=== PATIENT | male | born 2000 | race Caucasian/White ===

== ENCOUNTER 2023-08-09 09:38 | Emergency (ER) | payer SELFPAY ==
[2023-08-09 09:55] VITALS: BP 149/87; PULSE 74; RESP 20; TEMP 36.7; O2SAT 98; BMI 32.7
[2023-08-09 10:08] LABS: UTC Strep Screen (Rapid) Negative (Negative)
--- NOTE | 2023-08-09 10:12 | EXP.UTC ---
Discharge Plan Disposition Patient Disposition: Home, Self-Care Condition: Good Prescriptions Prescriptions: New amoxicillin 875 mg tablet 875 mg PO Q12H Qty: 20 0RF fluticasone propionate [Flonase Allergy Relief] 50 mcg/actuation spray,suspension 1 - 2 spray intranasal DAILY Qty: 16 0RF Rx Instructions: administer into each nostril daily Referrals Follow up/Referrals: Provider,Referral, MD [Primary Care Provider] - See instructions Activity Restrictions/Add. Instructions Additional Instructions/Restrictions: *Monitor Temp, Over the counter Motrin or Tylenol as directed/as needed Tylenol every 4 hours and Motrin every 6 hours (as long as your family doctor has told you that you can take it) for fever or pain. and straight to ER if unable to lower temp less than 101.0 after medication given *Warm salt water gargles may help to soothe the throat *Throat Lozenges? *Warm fluids like tea with honey may help to soothe the throat? *Sleep elevated *Humidifier/Vaporizer *Flonase 2 sprays in each nostril daily but be aware that it may take 2-3 days before you notice improvement Your throat swab was sent for culture. Those results are typically sent to your primary care. Be sure to follow up in 2-3 days with your family doctor/primary care physician if no improvement so they can review those result and treat if necessary. If you don?t have a primary care doctor, I recommend you get one but in the mean time, you will have to return to a walk in clinic Follow up IMMEDIATELY for new or worsening symptoms or no Noticeable improvement over the next 48-72 hours. 911 for difficulty breathing or swallowing Clinical Impressions Clinical Impression: Otitis media Qualifiers: Otitis media type: unspecified Laterality: left Qualified Code(s): H66.92 - Otitis media, unspecified, left ear Instructions Patient Instructions: Middle Ear Infection, Amoxicillin Discharge ED Provider: Pearl Holt [facility] General Stated complaint: SORE THROAT, BOTH EARS HURT Mode of Arrival: Ambulatory Source of Information: Patient Limitations: No Limitations Time Seen by Provider: 08/09/23 10:13 Description of Symptoms (Recalled from Triage Doc. by RN): PATIENT C/O SORE THROAT AND BIALTERAL EAR PAIN X 2-3 DAYS HEENT Symptoms (Recalled from RN notes): Yes Resp Symptoms (Recalled from RN notes): No Skin Symptoms (Recalled from RN notes): No MS Symptoms (Recalled from RN notes): No Functional Status (Recalled from RN notes): WNL History of Present Illness Provider Complaint: Patient states that he has been having bilateral ear pain and sore throat and burning like sensation in his throat with swallowing States that today he was feeling worse so he came in to get checked Related Data Previous Rx's Medication Instructions Recorded amoxicillin 875 mg tablet 875 mg PO Q12H #20 tabs 08/09/23 fluticasone propionate 50 1 - 2 spray intranasal DAILY #16 08/09/23 mcg/actuation nasal grams spray,suspension (Flonase Allergy Relief) Allergies Allergy/AdvReac Type Severity Reaction Status Date / Time No Known Allergies Allergy Verified 08/09/23 10:07 Worker's Comp Is this a Worker's Comp case?: No PFS PFS Disclaimer: The information contained in this section may have been updated after the patient was seen, as this information can be updated by other users. Surgical History (Updated 08/09/23 @ 10:08 by Claudia Pryor RN) History of tympanostomy tube placement Social History Smoking Status: Unknown if ever smoked alcohol intake: never current occupational status: employed Travel in the last 8 weeks: None ROS Obtained: Yes All systems reviewed & no additional complaints except as documented Constitutional Constitutional: Reports system reviewed and no additional complaints, except as documented, Reports as per HPI and Reports headache(s) ENT Ears, Nose, Mouth, and
[2023-08-09 10:28] VITALS: BP 149/87; PULSE 74; RESP 20; TEMP 36.7; O2SAT 98
== END 2023-08-09 10:33 | disposition home or self-care (01) ==
PROVIDERS: Emergency Provider Nurse Practitioner
DX: H66.92 Otitis media, unspecified, left ear (principal); R07.0 Pain in throat; H92.03 Otalgia, bilateral
CPT/HCPCS: 87880; 99204; 99212; G0463

== ENCOUNTER 2023-08-27 16:54 | Emergency (ER) | payer SELFPAY ==
--- NOTE | 2023-08-27 16:52 | ECG_ITS ---
APPROVED REPORT Exam: Resting ECG HR:131 bpm ECG Measurements Heart Rate 131 AXES VA 172 P 73 QRSd 96 QRS 85 QT 382 T 53 QTc 459 Conclusion SINUS TACHYCARDIA INCOMPLETE RIGHT BUNDLE BRANCH BLOCK [90+ ms QRS DURATION, TERMINAL R IN V1/V2, 40+ ms S IN I/aVL/V4/V5/V6] NONSPECIFIC T-WAVE ABNORMALITY ABNORMAL RHYTHM ECG UNCONFIRMED REPORT Electronically signed by : Gilmar Perry MD 08/28/2023 10:18:22
[2023-08-27 16:55] VITALS: BMI 22.9
[2023-08-27 17:00] VITALS: BP 146/91; BP 155/88; PULSE 76; PULSE 93; RESP 19; RESP 23; TEMP 36.7; O2SAT 96; O2SAT 99; BMI 22.9
--- NOTE | 2023-08-27 17:13 | XR_ITS ---
PROCEDURE INFORMATION: Exam: XR Chest Exam date and time: 08/27/2023 5:29 PM Age: 23 years old Clinical indication: Pain; Chest pressure; Patient HX: PT vapes; Additional info: Chest pain TECHNIQUE: Imaging protocol: Radiologic exam of the chest. Views: 1 view. COMPARISON: No relevant prior studies available. FINDINGS: Lungs: Unremarkable. No consolidation. Pleural spaces: Unremarkable. No pleural effusion. No pneumothorax. Heart/Mediastinum: Unremarkable. No cardiomegaly. Bones/joints: Unremarkable. IMPRESSION: No acute findings.
[2023-08-27 17:30] VITALS: BP 127/74; PULSE 75; RESP 19; O2SAT 97
[2023-08-27 17:31] LABS: Basophils # 0.1 K/mm3 (0-0.2); Basophils % 0.5 % (0.1-2.0); Chloride 103 mmol/L (98-107); Eosinophils # 0.3 K/mm3 (0.0-0.4); Eosinophils % 2.7 % (0.1-12.0); Hematocrit 44.6 % (42.0-52.0); Hemoglobin 15.6 g/dL (14.1-18.0); Lymphocytes # 3.8 K/mm3 (0.7-4.5); Lymphocytes % 38.6 % (10-50); Mean Corpuscular Hemoglobin 30.2 pg (27.0-31.2); Mean Corpuscular Volume 86.4 fl (80-94); Mean Platelet Volume 7.3 fl (7.4-10.4); Monocytes # 0.6 K/mm3 (0.1-1.0); Monocytes % 6.3 % (1.7-9.3); Neutrophils # 5.1 K/mm3 (1.8-7.8); Platelet Count 332 K/mm3 (142-424); Red Blood Count 5.16 M/mm3 (4.60-6.20); Red Cell Distribution Width 12.9 % (11.5-17.5); White Blood Count 9.9 K/mm3 (4.8-10.8)
[2023-08-27 17:32] LABS: Potassium 3.4 mmoL/L (3.5-5.1); Sodium 142 mmol/L (136-145)
[2023-08-27 17:34] LABS: Alanine Aminotransferase 40 U/L (12-78); Aspartate Amino Transferase 42 U/L (17-59); Blood Urea Nitrogen 12 mg/dl (9-20); Creatinine Clearance Estimated 150 mL/min (50-200); Estimated Glomerular Filt Rate 122 ml/min (>60); GFR (African American) 148 ML/MIN (>60)
[2023-08-27 17:35] LABS: Albumin Level 5.2 g/dl (3.5-5.0); Albumin/Globulin Ratio 1.6 (1.1-1.8); Alkaline Phosphatase 89 U/L (38-126); Anion Gap 13.4 mEq/L (5-15); Bilirubin,Total 0.5 mg/dl (0.2-1.3); Calcium 9.6 mg/dl (8.4-10.2); Carbon Dioxide 29 mmol/L (22.0-30.0); Globulin 3.3 g/dL (1.3-3.2); Glucose 100 mg/dl (74-100); Total Protein,Serum 8.5 g/dl (6.3-8.2)
--- NOTE | 2023-08-27 17:44 | PC.NURSE ---
Dr. Stahl at [facility] for pt eval
--- NOTE | 2023-08-27 17:48 | HMH.EDCP ---
Discharge Plan Disposition Patient Disposition: Home, Self-Care Prescriptions Prescriptions: No Action amoxicillin 875 mg tablet 875 mg PO Q12H Qty: 20 0RF fluticasone propionate [Flonase Allergy Relief] 50 mcg/actuation spray,suspension 1 - 2 spray intranasal DAILY Qty: 16 0RF Rx Instructions: administer into each nostril daily Referrals Follow up/Referrals: Provider,Referral, MD [Primary Care Provider] - See instructions Activity Restrictions/Add. Instructions Additional Instructions/Restrictions: No evidence of myocarditis or any other acute cardiopulmonary emergency. Your symptoms are most likely secondary to gastroesophageal reflux disease given the significant improvement with a GI cocktail. You may take Maalox or Pepcid [id number] please follow-up primary care doctor as needed. Clinical Impressions Clinical Impression: Chest pain, GERD (gastroesophageal reflux disease) Discharge ED Provider: Matt Stahl [facility] General Chief Complaint: Chest Pain Stated Complaint: Chest Pain Time Seen by Provider: 08/27/23 17:44 Mode of Arrival: Ambulatory Source of Information: Patient Limitations: No Limitations Description of Symptoms (Recalled from ER Triage Doc. by RN): pt to ed c/o left sided chest pain that started x2 days ago. pt states he has a hx of endocarditis. pt reports intermittent pain. pt denies any radiation. 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 Has not had any viral illness recently but states he started having some chest discomfort on Sunday. Thought that it was reflux took Tums and felt significantly improved however pain returned today at noon and did not get better with Tums therefore came to the emergency department make sure he did not have myocarditis. Denies any exertional symptoms no fevers or chills or cough etc. Related Data Previous Rx's Medication Instructions Recorded amoxicillin 875 mg tablet 875 mg PO Q12H #20 tabs 08/09/23 fluticasone propionate 50 1 - 2 spray intranasal DAILY #16 08/09/23 mcg/actuation nasal grams spray,suspension (Flonase Allergy Relief) Allergies Allergy/AdvReac Type Severity Reaction Status Date / Time No Known Allergies Allergy Verified 08/09/23 10:07 [facility] Disclaimer: The information contained in this section may have been updated after the patient was seen, as this information can be updated by other users. Surgical History (Updated 08/09/23 @ 10:08 by Claudia Pryor RN) History of tympanostomy tube placement Social History (Updated 08/09/23 @ 10:20 by Pearl Holt APRN) Smoking Status: Never smoker alcohol intake: never current occupational status: employed Travel in the last 8 weeks: None ROS Obtained: Yes All systems reviewed & no additional complaints except as documented Physical Exam General General appearance: alert and in no apparent distress Respiratory Respiratory exam: Present normal lung sounds bilaterally; Absent respiratory distress, wheezes, stridor or accessory muscle use Cardiovascular Cardiovascular exam: Present regular rate; Absent tachycardia Neurological Exam Neurological exam: Present alert HEART Score HEART Score HEART Score assessment performed?: Yes History (anamnesis): Slightly suspicious ECG: Non-specific disturbance Age: <45 years Risk factors: No known risk factors Troponin: </= normal limit HEART Score: 1 Critical Care Critical Care Time Critical Care Time: No Medical Decision Making [place] Inquiry Pt receiving controlled substance: No Vital Signs Vital Signs: 08/27/23 17:00 08/27/23 17:00 08/27/23 17:30 Temperature 98.1 F Temperature Source Oral Pulse Rate 76 75 Pulse Rate [Left Radial] 93 H Respiratory Rate 19 23 19 Blood Pressure 146/9
[2023-08-27 17:58] LABS: Troponin I < 0.01 ng/ml (0.00-0.034)
[2023-08-27 18:01] VITALS: BP 121/76; PULSE 80; RESP 22; O2SAT 99
--- NOTE | 2023-08-27 18:11 | PC.NURSE ---
rounded on pt gave him a glass of water call light at [facility]
[2023-08-27 18:30] VITALS: BP 120/63; PULSE 81; RESP 15; O2SAT 95
--- NOTE | 2023-08-27 18:41 | PC.NURSE ---
Rounded on pt. No needs voiced. Call light remains within reach.
[2023-08-27 19:00] VITALS: BP 115/70; PULSE 59; RESP 20; O2SAT 96
[2023-08-27 19:54] VITALS: BP 115/64; PULSE 60; RESP 18; TEMP 36.7; O2SAT 97
== END 2023-08-27 19:56 | disposition home or self-care (01) ==
PROVIDERS: Emergency Provider Student in an Organized Health Care Education/Training Program
DX: R07.9 Chest pain, unspecified (principal); K21.9 Gastro-esophageal reflux disease without esophagitis
CPT/HCPCS: 71045; 80053; 84484; 85025; 93005; 99285

== ENCOUNTER 2024-02-03 22:45 | Emergency (ER) | payer BC, SELFPAY ==
--- NOTE | 2024-02-03 | ECG_ITS ---
APPROVED REPORT Exam: Resting ECG HR:112 bpm ECG Measurements Heart Rate 112 AXES MS 172 P 56 QRSd 101 QRS 81 QT 312 T -17 QTc 378 Conclusion SINUS TACHYCARDIA INCOMPLETE RIGHT BUNDLE BRANCH BLOCK [90+ ms QRS DURATION, TERMINAL R IN V1/V2, 40+ ms S IN I/aVL/V4/V5/V6] ST DEVIATION AND MODERATE T-WAVE ABNORMALITY, CONSIDER LATERAL ISCHEMIA [-0.1+ mV T-WAVE IN I/aVL/V5/V6] ST DEVIATION AND MODERATE T-WAVE ABNORMALITY, CONSIDER INFERIOR ISCHEMIA [-0.1+ mV T-WAVE IN II/aVF] ABNORMAL ECG Abnormalities in T wave and ST segments in the inferior leads as well as lateral leads, does not meet criteria for STEMI Electronically signed by : KARLA ASIF, 02/04/2024 07:12:42
[2024-02-03 22:46] VITALS: BP 162/99; PULSE 92; RESP 18; TEMP 36.8; O2SAT 98; BMI 31.9
[2024-02-03 22:51] VITALS: BMI 31.9
--- NOTE | 2024-02-03 22:52 | XR_ITS ---
PROCEDURE INFORMATION: Exam: XR Chest Exam date and time: 02/03/2024 10:55 PM Age: 24 years old Clinical indication: Pain; Chest pressure; Additional info: Cp TECHNIQUE: Imaging protocol: Radiologic exam of the chest. Views: 1 view. COMPARISON: CR XR CHEST PORTABLE 08/27/2023 5:29 PM FINDINGS: Lungs: Unremarkable. No consolidation. Pleural spaces: Unremarkable. No pleural effusion. No pneumothorax. Heart/Mediastinum: Unremarkable. No cardiomegaly. Bones/joints: Unremarkable. IMPRESSION: No acute findings.
[2024-02-03 23:00] VITALS: BP 176/100; PULSE 98; RESP 21; O2SAT 98
[2024-02-03 23:01] LABS: Basophils # 0.2 K/mm3 (0-0.2); Basophils % 1.3 % (0.1-2.0); Eosinophils # 0.6 K/mm3 (0.0-0.4); Eosinophils % 4.3 % (0.1-12.0); Hematocrit 47.4 % (42.0-52.0); Hemoglobin 15.8 g/dL (14.1-18.0); Lymphocytes # 5.6 K/mm3 (0.7-4.5); Lymphocytes % 40.8 % (10-50); Mean Corpuscular HGB Conc 33.5 g/dL (31.8-35.4); Mean Corpuscular Hemoglobin 30.1 pg (27.0-31.2); Mean Platelet Volume 7.1 fl (7.4-10.4); Monocytes % 7.4 % (1.7-9.3); Neutrophils # 6.3 K/mm3 (1.8-7.8); Neutrophils % 46.3 % (37.0-80.0); Platelet Count 328 K/mm3 (142-424); Red Blood Count 5.26 M/mm3 (4.60-6.20); Red Cell Distribution Width 13.5 % (11.5-17.5); White Blood Count 13.7 K/mm3 (4.8-10.8)
[2024-02-03 23:05] LABS: Chloride 100 mmol/L (98-107); Potassium 3.1 mmoL/L (3.5-5.1); Sodium 141 mmol/L (136-145)
[2024-02-03 23:07] LABS: Alanine Aminotransferase 45 U/L (12-78); Alkaline Phosphatase 91 U/L (38-126); Aspartate Amino Transferase 44 U/L (17-59); Bilirubin,Total 0.7 mg/dl (0.2-1.3); Blood Urea Nitrogen 17 mg/dl (9-20); Creatinine Clearance Estimated 156 mL/min (50-200); Estimated Glomerular Filt Rate 93 ml/min (>60); GFR (African American) 113 ML/MIN (>60)
[2024-02-03 23:08] LABS: Albumin Level 5.1 g/dl (3.5-5.0); Albumin/Globulin Ratio 1.5 (1.1-1.8); Anion Gap 14.1 mEq/L (5-15); Calcium 10.4 mg/dl (8.4-10.2); Carbon Dioxide 30 mmol/L (22.0-30.0); Globulin 3.4 g/dL (1.3-3.2); Glucose 105 mg/dl (74-100); Total Protein,Serum 8.5 g/dl (6.3-8.2)
[2024-02-03 23:21] LABS: Troponin I < 0.01 ng/ml (0.00-0.034)
[2024-02-03 23:30] VITALS: BP 167/108; PULSE 86; RESP 19; O2SAT 97
--- NOTE | 2024-02-04 00:21 | HMH.EDCP ---
Discharge Plan Disposition Patient Disposition: Home, Self-Care Condition: Good Prescriptions Prescriptions: No Action amoxicillin 875 mg tablet 875 mg PO Q12H Qty: 20 0RF fluticasone propionate [Flonase Allergy Relief] 50 mcg/actuation spray,suspension 1 - 2 spray intranasal DAILY Qty: 16 0RF Rx Instructions: administer into each nostril daily Referrals Follow up/Referrals: Ruma Haas MD [Primary Care Provider] - See instructions Timmy Stephens MD [Staff Physician] - See instructions (History of cardiac abnormalities as an adolescent, had chest pain) Activity Restrictions/Add. Instructions Additional Instructions/Restrictions: You were evaluated in the ER. You are appropriate for discharge at this time. You have been referred to cardiology, they want to see you at 2 PM on Sunday with Dr. Cardenas. Also make an appointment with your primary care physician for reevaluation in 2 to 3 days. Return to the ER with new, worsening, or otherwise concerning symptoms. Clinical Impressions Clinical Impression: Chest pain Discharge ED Provider: Sloan Kraus General Chief Complaint: Chest Pain Stated Complaint: Chest pain Time Seen by Provider: 02/04/24 00:20 Mode of Arrival: Ambulatory Source of Information: Patient Limitations: No Limitations Description of Symptoms (Recalled from ER Triage Doc. by RN): pt c/o lt side chest pain episodes x 2 days. pt dneies any radiation. History of Present Illness HPI narrative: 24-year-old male history of prior cardiac event when he was a teenager but not currently on any daily medications presents to the ER with concerns of left-sided chest pain. He states he has chest pain in the left chest which is nonradiating. This been going on intermittently for the last 2 days. He currently has only mild pain. He is not having any dizziness, nausea, or other associated symptoms. Related Data Previous Rx's Medication Instructions Recorded amoxicillin 875 mg tablet 875 mg PO Q12H #20 tabs 08/09/23 fluticasone propionate 50 1 - 2 spray intranasal DAILY #16 08/09/23 mcg/actuation nasal grams spray,suspension (Flonase Allergy Relief) Allergies Allergy/AdvReac Type Severity Reaction Status Date / Time No Known Allergies Allergy Verified 08/09/23 10:07 [facility] Disclaimer: The information contained in this section may have been updated after the patient was seen, as this information can be updated by other users. Surgical History (Updated 08/09/23 @ 10:08 by Claudia Pryor RN) History of tympanostomy tube placement Social History (Updated 08/09/23 @ 10:20 by Pearl Holt APRN) Smoking Status: Current every day smoker alcohol intake: never current occupational status: employed Travel in the last 8 weeks: None ROS Obtained: Yes All systems reviewed & no additional complaints except as documented Constitutional Constitutional: Denies chills, Denies fever(s), Denies headache(s) and Denies weakness Eyes Eyes: Denies change in vision ENT Ears, Nose, Mouth, and Throat: Denies dizziness, Denies headache(s), Denies nasal congestion and Denies sore throat Cardiovascular Cardiovascular: Reports chest pain, Denies dyspnea and Denies leg edema Respiratory Respiratory: Denies cough and Denies dyspnea Gastrointestinal Gastrointestingal: Denies constipation, diarrhea, nausea or vomiting Genitourinary Male Genitourinary: Denies difficulty urinating Musculoskeletal Musculoskeletal: Denies arthralgias, Denies myalgias, Denies numbness and Denies tingling Integumentary/Breasts Skin/Breast: Denies change in pigmentation Neurologic Neurologic: Denies dizziness, Denies headache(s), Denies numbness, Denies tingling and Denies weakness Physical Exam General General appearance: alert and in no apparent distress Head Head exam: atraumatic and normocephalic Eye Eye exam: Present PERRL and EOMI ENT ENT exam: Present mucous membranes moist Neck Neck exam: Present normal inspection and full ROM Chest Chest inspection: Present symmetric chest wall rise Respiratory Respiratory exam: Present normal lung sounds bilaterally; Absent respiratory distress, wheezes or stridor Cardiovascular Cardiovascular exam: Present regular rate and normal rhythm Abdominal Exam Abdominal exam: Present soft; Absent distention or tenderness Extremities Exam Extremities exam: Present full ROM Neurological Exam Neurological exam: Present alert and oriented X3; Absent motor sensory deficit Psychiatric Psychiatric exam: Present normal affect and normal mood Skin Skin exam: Present warm and dry HEART Score HEART Score HEART Score assessment performed?: Yes History (anamnesis): Slightly suspicious ECG: Non-specific disturbance Age: <45 years Risk factors: 1-2 risk factors Troponin: </= normal limit HEART Score: 2 Critical Care Critical Care Time Critical Care Time: No Medical Decision Making Erickson Inquiry Pt receiving controlled substance: No Vital Signs Vital Signs: 02/03/24 22:46 02/03/24 23:00 02/03/24 23:30 Temperature 98.2 F Temperature Source Oral Pulse Rate 98 H 86 Pulse Rate [Left] 92 H Respiratory Rate 18 21 19 Blood Pressure 176/100 H 167/108 H Blood Pressure [Right Arm] 162/99 H Blood Pressure Mean [Right Arm] 120 02 Sat by Pulse Oximetry 98 98 97 Oxygen Delivery Method Room Air Room Air Lab Data Labs: Lab Results 02/03/24 22:48: WBC 13.7 H, RBC 5.26, Hgb 15.8, Hct 47.4, MCV 90.0, MCH 30.1, MCHC 33.5, RDW 13.5, Plt Count 328, MPV 7.1 L, Neut % (Auto) 46.3, Lymph % (Auto) 40.8, [place] % (Auto) 7.4, Eos % (Auto) 4.3, Baso % (Auto) 1.3, Neut # (Auto) 6.3, Lymph # (Auto) 5.6 H, [place] # (Auto) 1.0, Eos # (Auto) 0.6 H, Baso # (Auto) 0.2, Sodium 141, Potassium 3.1 L, Chloride 100, Carbon Dioxide 30, Anion Gap 14.1, BUN 17, Creatinine 1.00, Estimated Creat Clear 156, Estimated GFR 93, Est GFR ( Amer) 113, Glucose 105 H, Calcium 10.4 H, Total Bilirubin 0.7, AST 44, ALT 45, Alkaline Phosphatase 91, Troponin I < 0.01, Total Protein 8.5 H, Albumin 5.1 H, Globulin 3.4 H, Albumin/Globulin Ratio 1.5 02/04/24 01:35: Troponin I < 0.01 02/03/24 22:48 02/03/24 22:48 Response Orders (Tests/Meds): ORDERS Category Date Time Status Chest XR -- portable [XR chest portable] Stat Exams 02/03/24 22:52 Completed Complete Blood Count Auto Diff Stat Lab 02/03/24 22:48 Completed Comprehensive Metabolic Panel Stat Lab 02/03/24 22:48 Completed Troponin I Q3H Lab 02/04/24 01:35 Completed Troponin I Q3H Lab 02/04/24 05:00 Ordered Troponin I Stat Lab 02/03/24 22:48 Completed MDM Narrative Medical Decision Narrative: In summary, this 24year old male presents to the emergency department today with chest pain. On initial evaluation patient is hemodynamically stable, afebrile, cardiopulmonary exam reassuring. Differential diagnosis includes but is not limited to ACS, pneumothorax, electrolyte abnormality, dehydration, arrhythmia. Based on these concerns, I ordered cardiac workup, basic labs. ECG personally interpreted demonstrates sinus tachycardia, rate 112, normal axis, normal NM and QTc, patient has T wave inversions and depressions in leads II, 3, aVF as well as the lateral leads, these are nonspecific and are not consistent with STEMI. Repeat EKG demonstrates normal sinus rhythm, rate 65, normal axis, normal NM and QTc, patient's inversions and depressions in the inferior and lateral leads have improved now that his heart rate has improved, and these were likely initially present due to demand. Labs personally reviewed demonstrate mild leukocytosis with WBC 13.7, no anemia, no findings of kidney or liver dysfunction, initial troponin undetectably low at less than 0.01, this is significantly reassuring giving the duration of patient's symptoms over the last few days,. XR personally interpreted demonstrates no acute thoracic abnormality, see radiology read for final interpretation. The patient was placed into ED observation for serial troponins. He was placed in the ED observation at 0030. As for the purpose of ruling out evolving ND and to preclude unnecessary admission. Repeat troponin is also undetectably low at less than 0.01. He has remained on the monitor and not had any abnormalities in his vitals or changes. He is symptom-free on reassessment. Due to changes on his EKG that are rate dependent, I discussed this with Dr. Stephens. He recommends outpatient follow-up with cardiology on Sunday at 2 PM. Patient was given instructions on symptomatic management, follow up instructions, and return precautions for the emergency department. Patient indicated understanding and was discharged in stable condition.
--- NOTE | 2024-02-04 02:00 | ECG_ITS ---
APPROVED REPORT Exam: Resting ECG HR:65 bpm ECG Measurements Heart Rate 65 AXES WV 184 P 32 QRSd 94 QRS 68 QT 376 T 20 QTc 387 Conclusion SINUS RHYTHM NORMAL ECG T wave inversion in lead III, no STEMI, improved compared to earlier ECG Electronically signed by : KARLA ASIF, 02/04/2024 07:13:08
[2024-02-04 02:03] LABS: Troponin I < 0.01 ng/ml (0.00-0.034)
[2024-02-04 02:31] VITALS: BP 154/81; PULSE 81; RESP 18; TEMP 36.8; O2SAT 97
== END 2024-02-04 02:33 | disposition home or self-care (01) ==
PROVIDERS: Emergency Medicine; Emergency Provider Emergency Medicine; PCP Family Medicine
DX: R07.9 Chest pain, unspecified (principal); E87.6 Hypokalemia; R00.0 Tachycardia, unspecified; F17.210 Nicotine dependence, cigarettes, uncomplicated
CPT/HCPCS: 71045; 80053; 84484; 85025; 93005; 99284

== ENCOUNTER 2024-02-04 14:55 | Outpatient (CLI) | payer BC, SELFPAY ==
[2024-02-04 15:39] LABS: D-Dimer < 0.25 ug/mL (0.0-0.5)
[2024-02-04 15:50] LABS: Creatine Kinase 172 U/L (55-170)
[2024-02-04 16:03] LABS: NT Pro Brain Natriuretic Pep. < 20.0 pg/mL (0-125)
[2024-02-04 16:05] LABS: Troponin I < 0.01 ng/ml (0.00-0.034)
[2024-02-04 16:07] LABS: Erythrocyte Sedimentation Rate 8 mm/hr (0-15)
[2024-02-04 16:22] LABS: Thyroid Stimulating Hormone 1.72 uIU/mL (0.465-4.68)
[2024-02-06 14:13] LABS: Anti-Centromere B Antibodies <0.2 AI (0.0-0.9); Anti-DNA (DS) Ab Qn <1 IU/mL (0-9); Anti-Jo-1 <0.2 AI (0.0-0.9); Anti-Smith Antibody <0.2 AI (0.0-0.9); Antichromatin Antibodies <0.2 AI (0.0-0.9); Antiscleroderma-70 Antibodies <0.2 AI (0.0-0.9); RNP Antibodies 0.3 AI (0.0-0.9); Sjogren's Anti-SS-A <0.2 AI (0.0-0.9); Sjogren's Anti-SS-B <0.2 AI (0.0-0.9)
== END 2024-02-04 23:59 | disposition home or self-care (01) ==
LOC: LAB 14:57
PROVIDERS: PCP Family Medicine; Visit Provider Internal Medicine
DX: R07.9 Chest pain, unspecified (principal); I51.4 Myocarditis, unspecified
CPT/HCPCS: 36415; 82550; 83880; 84443; 84484; 85378; 85651; 86140; 86225; 86235

== ENCOUNTER 2024-02-26 12:03 | Outpatient (CLI) | payer BC, SELFPAY ==
--- NOTE | 2024-02-26 12:04 | CT_ITS ---
APPROVED REPORT Buccaro: CLINICAL INDICATION Chest Pain TECHNIQUE Image Acquisition: A 128 slice MDCT scanner (Boombotixa View) was used for data acquisition. A noncontrast coronary calcium scan was performed. A CT attenuation threshold of 130 Hounsfield units (HU) was used for the detection of calcium in contiguous voxels of 1 sq mm in area to be counted as individual lesions. Bolus tracking in the ascending aorta with a threshold of 180 HU was performed. Immediately afterwards, ECG synchronized cardiac CT was then performed from the cardiac base to apex using retrospective gating with ECG tube current modulation. A total of 85 mL of Isovue 370 mg/mL contrast medium was administered at 5 mL/sec followed by a saline flush using a biphasic injection protocol. A tube voltage of 120 KVp was used. The patient received the following medications prior to the cardiac CT. 25 mg of oral metoprolol 5 mg of intravenous metoprolol 0.8 mg of sublingual nitroglycerin The average heart rate at the time of acquisition was 78 bpm and regular. Image Reconstruction Transaxial images were reconstructed at 0.67 mm slide thickness. Data was reviewed interactively on an advanced workstation capable of 2 and 3-dimensional displays in all conventional reconstruction formats, including multiplanar reformations, maximum intensity projections, curved multiplanar reformations, and volume rendered reconstructions. When applicable, selected routine images describing the relevant coronary anatomy and pathology were saved and sent to PACS. Complications None Technical Quality Overall image quality was suboptimal due to significant motion and step artifact. Coronary artery opacification was adequate. Total DLP (Dose-Length Product) is 1497.9 mGy-cm. The reported value represents the total of one or more individual components during the CT acquisition of this date and at this time, and as such, the same value may appear in more than one CT report depending on the interpreting/reporting physicians. COMPARISON None FINDINGS CT Coronary Calcium Scoring LMA (Left Main Artery) = 0 LAD (Left Anterior Descending) = 0 LCX (Left Coronary Circumflex) = 0 RCA (Right Coronary Artery) = 0 Total Calcium Score = 0 using the AJ-130 method. The interpretation of the calcium heart score is based on the following continuum*: 0 = no calcified plaque detected (risk of coronary artery disease is very low ??? less than 5%) 1-10 = calcium detected in extremely minimal levels (risk of coronary diseases is still low ??? less than 10%) 11-100 = mild levels of plaque detected with certainty (mild or minimal narrowing of heart arteries is likely) 101-400 = definite,at least moderate levels of plaque detected (relatively high risk of a heart attack within 3-5 years) >401-999 = extensive levels of plaque detected (high risk of heart attack, high levels of vascular disease are present, high likelihood of at least one significant coronary narrowing) *The calcium heart score quantifies the burden of coronary calcification/plaque in the coronary arteries. The calcium heart score is not able to evaluate the presence or burden of non-calcified (i.e. soft) plaque. There is no identifiable calcification in the aortic valve, mitral annulus or mitral valve, pericardium, or myocardium. Coronary CT Angiography The coronary arterial system is right dominant. Quantitative Stenosis Grading: Left Main (LM): The left main originates normally from the left sinus of Valsalva. The LM bifurcates into the left anterior descending artery and left circumflex artery. The LM is patent with no evidence of atherosclerosis. Left Anterior Descending (LAD) and Diagonal Branches: The LAD gives off 2 diagonal branch(es). The LAD and its branches are patent with no evidence of atherosclerosis. There is no evidence of LAD-myocardial bridge. Left Circumflex (LCX) and Obtuse Marginals (OM): The LCX gives off 1 Obtuse Marginal (OM) branch(es). The LCX and its branches are patent with no evidence of atherosclerosis. Right Coronary Artery (RCA): The RCA originates normally from the right sinus of Valsalva. The RCA gives off a posterior descending artery (PDA) and posterolateral (PL) branches. The RCA and its branches are patent with no evidence of atherosclerosis. Non-Coronary Cardiac Findings: Analysis of the left ventricular (LV) structure and function was performed after 3-D reconstruction of the LV from axial images, with user-corrected automatic contouring for assessment of LV volumes and user-defined reconstruction from oblique planes for measurement of 3-D cardiac structure and function. -The left ventricle systolic function is normal. -There is no left atrial appendage filling defect. Two right pulmonary veins and two left pulmonary veins drain normally into the left atrium. -No pericardial thickening or calcification. -Central and branch pulmonary arteries in the [id number] are unremarkable. -Thoracic aorta within the visualized thoracic aortic-branches in the [id number] is unremarkable. Extracardiac Structures No significant extra-cardiac findings. Note, however, that this study is focused on the cardiac findings. IMPRESSION -Overall image quality was suboptimal due to significant motion and step artifact. -No coronary calcification with an Agatston score = 0 using the AJ-130 method. -No evidence of significant flow-limiting atherosclerosis of the coronary arteries. -No evidence of coronary anomalies or myocardial bridges. -CAD-RADS 0. Management recommendations per ACC/AHA guidelines*, as clinically appropriate. *Recommendations: CAD RADS 0: Reassurance. Consider non-atherosclerotic causes of chest pain. CAD RADS 1: Consider non-atherosclerotic causes of chest pain. Consider preventive therapy and risk factor modification. CAD RADS 2: Consider non-atherosclerotic causes of chest pain. Consider preventive therapy and risk factor modification, particularly for patients with nonobstructive plaque in multiple segments. CAD RADS 3: Consider further functional testing. Consider symptom-guided anti-ischemic and preventive pharmacotherapy as well as risk factor modification per published guideline statements. CAD RADS 4A: Consider further functional testing or invasive coronary angiography with revascularization per published guideline statements. Consider symptom-guided anti-ischemic and preventive pharmacotherapy as well as risk factor modification per published guideline statements. CAD RADS 4B: Invasive coronary angiography recommended with revascularization per published guideline statements. Consider symptom-guided anti-ischemic and preventive pharmacotherapy as well as risk factor modification per published guideline statements. CAD RADS 5: Consider invasive angiography and/or viability assessment with revascularization per published guideline statements. Consider symptom-guided anti-ischemic and preventive pharmacotherapy as well as risk factor modification per published guideline statements. CRITICAL RESULT None COMMUNICATION Per this written report The coronary and cardiac findings of this CCTA were reviewed, reported, and signed by Wesley Cardenas MD (Logistics Program Manager) Conclusion Electronically signed by : Dafne Cardenas MD 02/27/2024 17:11:03
[2024-02-26 12:21] VITALS: BMI 31.4
[2024-02-26 12:28] VITALS: BP 138/71; PULSE 62; RESP 18; TEMP 36.7; O2SAT 98
[2024-02-26] MEDS: METOPROLOL TARTRATE 25MG TABLET 25 MG (12:35)
[2024-02-26 12:52] VITALS: BP 154/99; PULSE 64; RESP 18; O2SAT 98
[2024-02-26] MEDS: NITROGLYCERIN 0.4MG SL TABLET SL (12:52)
[2024-02-26 13:00] VITALS: BP 135/66; PULSE 65; RESP 18; O2SAT 97
[2024-02-26] MEDS: METOPROLOL TARTRATE 5MG/5ML VIAL 5 MG IV (13:00)
[2024-02-26 13:10] VITALS: BP 142/61; PULSE 65; RESP 18; O2SAT 98
[2024-02-26] MEDS: 0.9 % SODIUM CHLORIDE 50 ML VIAL IV (13:10)
[2024-02-26] MEDS: SODIUM CHLORIDE 0.9% 10ML SYR (RAD ONLY) 10 ML IV ×2 (13:10→16:26)
[2024-02-26] MEDS: IOPAMIDOL-370 (76%);100ML BOTTLE 85 ML IV (13:10)
--- NOTE | 2024-02-26 13:11 | CA_ITS ---
APPROVED REPORT EXAM: Comprehensive 2D, Doppler, and color-flow Echocardiogram Industrial Management Teacher: Ana Phillip, RT(R) Ht: 5 ft 8 in Wt: 207lbs BSA: 2.07 BP: 128/72 mmHg Indications: hx of myocarditis(6 years ago), CP, smoker, family history of HD 2D Dimensions LVEF (Alvarenga's) 57.10 % M: 52 - 72 LV Volume 112.90 mL M: 62 - 150 LV Volume Index 54.3 mL/m2 M: 34 - 74 LA Volume 28.50 mL LA Volume Index 13.70 mL/m2 (M/F) 16-34 EF AP4 60.50 % EF AP2 52.2 % EF BP 57.1 % GL Strain -17.8 % M-Mode Dimensions RVDd 2.65 cm (0.9-2.6) LA Diam 3.44 cm (1.9-4.0) LVDd 4.54 cm (3.5-5.7) LVDs 3.33 cm (3.5-5.7) IVSd 0.89 cm (0.6-1.1) PWd 0.68 cm (0.6-1.1) EF (Teich) 52.20% FS 26.70% EDV (Teich) 94.40 mL ESV (Teich) 45.10 mL LV Diastology E Decel Time 157 (160-240 msec) E/A Ratio 1.9 Mitral Valve MV E Max Shaun. 103.0 (40-130 cm/s) MV A Velocity 53.0 (40-130 cm/s) E/A Ratio 1.95 MV PHT 46.0 ms Left Ventricle The left ventricle is normal size. The left ventricular systolic function is normal. The left ventricular ejection fraction is within the normal range. There is normal left ventricular wall thickness. There is normal LV segmental wall motion. The left ventricular diastolic function is normal. LVEF is 55%. Right Ventricle The right ventricle is normal size. The right ventricular systolic function is normal. Atria The left atrium size is normal. The right atrium size is normal. There is no Doppler evidence of interatrial shunt. Aortic Valve The aortic valve is normal in structure. The aortic valve is trileaflet. There is no aortic valvular stenosis. No aortic regurgitation is present. Mitral Valve The mitral valve is normal in structure. No evidence of mitral valve stenosis. Trace mitral regurgitation. Tricuspid Valve The tricuspid valve leaflets are thin and pliable. Trace tricuspid regurgitation. RVSP is normal. Pulmonic Valve The pulmonary valve is normal in structure. Trace pulmonic regurgitation. Great Vessels The aortic root is normal in size. The ascending aorta is normal in size. IVC is normal in size and collapses >50% with inspiration. Pericardium There is no pericardial effusion. Other Information Study Quality: Adequate Conclusion Normal biventricular systolic function. No significant valvular stenosis or regurgitation. Electronically signed by : Dafne Cardenas MD 03/01/2024 21:15:41
[2024-02-26 13:20] VITALS: BP 113/60; PULSE 62; RESP 18; O2SAT 98
[2024-02-26] MEDS: GADOTERIDOL INJ 20ML SYRINGE 20 ML IV (16:25)
[2024-02-26] MEDS: 0.9 % SODIUM CHLORIDE 50 ML VIAL 10 ML IV (16:26)
== END 2024-02-26 23:59 | disposition home or self-care (01) ==
LOC: RAD 12:04
PROVIDERS: PCP Family Medicine; Visit Provider Internal Medicine
DX: R07.9 Chest pain, unspecified (principal); I51.4 Myocarditis, unspecified
CPT/HCPCS: 75561; 75574; 93306; A9576; Q9967

== ENCOUNTER 2024-04-08 13:31 | Outpatient (CLI) | payer BC, SELFPAY ==
--- NOTE | 2024-04-08 13:36 | XR_ITS ---
FINAL REPORT CLINICAL HISTORY: rt FOOT PAIN..downed steel on top of foot FINDINGS: AP, oblique and lateral views of the right foot were obtained. There is no prior exam for comparison. There is no acute fracture or dislocation. The joint spaces are preserved. Soft tissues are normal. IMPRESSION: No acute osseous abnormality of the right foot. Reviewed, Interpreted and Dictated by Livia Matias MD Transcribed by Corine Morelos Authenticated and . [facility]
== END 2024-04-08 23:59 | disposition home or self-care (01) ==
LOC: RAD 13:33
PROVIDERS: PCP Nurse Practitioner; Visit Provider Nurse Practitioner
DX: M79.671 Pain in right foot (principal)
CPT/HCPCS: 73630

== ENCOUNTER 2025-01-20 13:17 | Outpatient (CLI) | payer OTHER, SELFPAY ==
--- NOTE | 2025-01-20 13:22 | XR_ITS ---
FINAL REPORT CLINICAL HISTORY: INJURY RT SHOULDER COMPARISON: None FINDINGS: RIGHT SHOULDER Three views demonstrate no acute fracture or dislocation. The visualized joint spaces are normally aligned. The soft tissues are unremarkable. IMPRESSION: No acute bony abnormality. Reviewed, Interpreted and Dictated by Murray Vásquez MD Transcribed by Nisa Graves Authenticated and [facility]
== END 2025-01-20 23:59 | disposition home or self-care (01) ==
LOC: RAD 13:20
PROVIDERS: PCP Nurse Practitioner; Visit Provider Nurse Practitioner
DX: S43.431A Superior glenoid labrum lesion of right shoulder, initial encounter (principal); S49.91XA Unspecified injury of right shoulder and upper arm, initial encounter
CPT/HCPCS: 73030

== ENCOUNTER 2025-02-04 12:40 | Outpatient (RCR) | payer OTHER, SELFPAY | END 2025-02-18 23:59 | disposition home or self-care (01) | LOC: PT 12:40 | PROVIDERS: PCP Nurse Practitioner; Visit Provider Nurse Practitioner | DX: M25.519 Pain in unspecified shoulder (principal) | CPT/HCPCS: 97110; 97163 ==

== ENCOUNTER 2025-07-29 09:14 | Outpatient (CLI) | payer OTHER, SELFPAY ==
[2025-07-29 15:22] LABS: Chloride 103 mmol/L (98-107); Potassium 4.3 mmoL/L (3.5-5.1); Sodium 140 mmol/L (136-145)
[2025-07-29 15:25] LABS: Alanine Aminotransferase 31 U/L (12-78); Alkaline Phosphatase 99 U/L (38-126); Anion Gap 14.3 mEq/L (5-15); Aspartate Amino Transferase 33 U/L (17-59); Bilirubin,Total 1.2 mg/dl (0.2-1.3); Blood Urea Nitrogen 11 mg/dl (9-20); Carbon Dioxide 27 mmol/L (22.0-30.0); Creatinine,Serum 0.80 mg/dl (0.66-1.25); Estimated Glomerular Filt Rate 120 ml/min (>60); GFR (African American) 145 ML/MIN (>60); Total Protein,Serum 7.9 g/dl (6.3-8.2)
[2025-07-29 15:26] LABS: Calcium 10.2 mg/dl (8.4-10.2); Glucose 83 mg/dl (74-100)
[2025-07-29 15:27] LABS: Hematocrit 43.3 % (42.0-52.0); Hemoglobin 14.8 g/dL (14.1-18.0); Immature Granulocytes % 0.6 %; Mean Corpuscular HGB Conc 34.2 g/dL (31.8-35.4); Mean Corpuscular Hemoglobin 29.7 pg (27.0-31.2); Mean Corpuscular Volume 86.9 fl (80-94); Nucleated Red Blood Cells % 0 %; Platelet Count 325 K/mm3 (142-424); Red Blood Count 4.98 M/mm3 (4.60-6.20); Red Cell Distribution Width-SD 40.4 fL; White Blood Count 7.2 K/mm3 (4.8-10.8)
[2025-07-29 15:57] LABS: Thyroid Stimulating Hormone 0.76 uIU/mL (0.465-4.68)
[2025-07-29 16:16] LABS: Hepatitis C Ab Qual. W/ RFX NEGATIVE (Negative)
[2025-07-29 17:58] LABS: Albumin Level 5.5 g/dl (3.5-5.0); Albumin/Globulin Ratio 2.3 (1.1-1.8); Globulin 2.4 g/dL (1.3-3.2)
[2025-07-30 09:18] LABS: Hepatitis B Surface Antigen Negative (Negative)
== END 2025-07-29 23:59 | disposition home or self-care (01) ==
LOC: LAB.DROPOF 07-30 20:15
PROVIDERS: PCP Nurse Practitioner Family; Visit Provider Nurse Practitioner Family
DX: F41.9 Anxiety disorder, unspecified (principal); I10 Essential (primary) hypertension
CPT/HCPCS: 80053; 84443; 85025; 86803; 87340; 87389